=== PATIENT | male | born 1965 | race Caucasian/White ===

== ENCOUNTER 2025-09-16 13:45 | Day surgery (SDC) | payer OTHER, SELFPAY ==
--- NOTE | 2025-09-16 07:06 | P.OP.PRE_ITS ---
Pre-operative Note
--- NOTE | 2025-09-16 07:06 | PM.PREOP ---
Pre-operative Note Interval Note History & Physical reviewed/Exam performed by Physician: Yes Changes to H&P: No ASA Class (for procedural sedation): II
[2025-09-16 15:13] VITALS: BP 140/75; PULSE 100; RESP 18; TEMP 36.5; O2SAT 97
[2025-09-16] MEDS: LACTATED RINGERS 1,000 ML 42 ML IV (15:21)
--- NOTE | 2025-09-16 16:14 | P.OP.COLON_ITS ---
Operative Date/Time/Diagnoses
--- NOTE | 2025-09-16 16:14 | PM.OP.COLON ---
Operative Date/Time/Diagnoses Date of procedure: 09/16/25 Time of procedure: 16:50 Pre-op diagnosis: +FIT, Post-op diagnosis: other (Polyps) Procedure & Clinicians Study performed: Colonoscopy Same procedure(s) as scheduled: Yes Indications: +FIT Surgeon: Sagar Weathers Anesthesia Type: MAC +/- Procedure Notes SCOAP/Timeout: Performed Procedure in detail: Colonoscopy Patient placed in left lateral recumbent position. Time out was performed. Procedural sedation was administered by anesthesia. Examination began with a thorough inspection of the perianal area. There was no evidence of fissures, fistulae, external hemorrhoids or cutaneous malignancy. The colonoscope was then placed into the rectum and the lumen was insufflated with carbon dioxide. The scope was carefully advanced forward. Ultimately the cecum was intubated and confirmed by identification of the ileocecal valve, the appendiceal orifice and the confluence of the taenia. The scope was then slowly withdrawn examining the colon thoroughly in all directions. In the rectum, retroflexion of the scope was performed for inspection of the distal rectum and anal canal. ?Significant colonoscopy findings: ?1. Quality of the preparation-good, Mozier 2-3, improved with irrigation/suction ?2. 2x4mm elongated sessile polyp on cecal haustral fold near ICV sampled with cold biopsy forceps 3. 5mm pedunculated, adenomatous, benign appearing polyp at 35cm, removed with hot snare and retrieved for pathology Scope withdrawal time: 14 minutes Findings: polyp(s) Specimen(s): other (polyps) Estimated Blood Loss: 5 Complications: none Impression: Colon polyps, path pending Post-procedure Recommendations: Colonoscopy in 5 years Plan for aftercare: PACU then home Follow up: as needed Disposition: PACU
[2025-09-16 16:57] VITALS: BP 170/97; PULSE 83; RESP 16; TEMP 37; O2SAT 100
[2025-09-16 17:16] VITALS: BP 158/70; PULSE 81; RESP 15; TEMP 36.9; O2SAT 99
== END 2025-09-16 17:17 | disposition home or self-care (01) ==
PROVIDERS: PCP Family Medicine; Referring Provider Surgery; Visit Provider Surgery
PROC: 0DJD8ZZ Inspection of Lower Intestinal Tract, Via Natural or Artificial Opening Endoscopic (ICD-10-PCS; CPT 45378; principal; 2025-09-16 15:30)
DX: Z12.11 Encounter for screening for malignant neoplasm of colon (principal); R19.5 Other fecal abnormalities; Z87.891 Personal history of nicotine dependence; Z80.0 Family history of malignant neoplasm of digestive organs; D12.6 Benign neoplasm of colon, unspecified; D12.0 Benign neoplasm of cecum
CPT/HCPCS: 45385; 45380; J2250; J2704; J7120